=== PATIENT | female | born 1960 | race Hispanic/Latino ===

== ENCOUNTER 2022-04-18 06:25 | Day surgery (SDC) | payer OTHER ==
[2022-04-18] MEDS ORDERED: SODIUM CHLORIDE 0.9% 500 ML 500 ML IV SCH (07:00)
[2022-04-18 07:32] LABS: Basophils # (Auto) 0.1 K/mm3 (0.0-0.1); Basophils % (Auto) 0.7 % (0.0-1.8); Eosinophils # (Auto) 0.1 K/mm3 (0.0-0.4); Hematocrit 35.8 % (30.3-42.9); Hemoglobin 12.2 gm/dl (10.1-14.3); Lymphocytes % (Auto) 33.4 % (13.4-35.0); Mean Corpuscular HGB Conc 34 % (30-34); Mean Corpuscular Volume 86 fl (79-97); Monocytes # (Auto) 0.8 K/mm3 (0.0-0.8); Monocytes % (Auto) 9.1 % (0.0-7.3); Platelet Count 281 K/mm3 (140-440); Red Blood Count 4.19 M/mm3 (3.65-5.03); Red Cell Distribution Width 13.1 % (13.2-15.2)
[2022-04-18 07:38] LABS: INR 0.93 (0.87-1.13)
[2022-04-18 07:39] LABS: Partial Thromboplastin Time 31.5 Sec. (24.2-36.6)
[2022-04-18 07:50] LABS: BUN/Creatinine Ratio 36; Blood Urea Nitrogen 32 mg/dL (7-17); Calcium 9.4 mg/dL (8.4-10.2); Hemolysis Index 13
[2022-04-18] MEDS ORDERED: HEPARIN/NS 5000 UNIT/500ML 500 ML IR ONE (08:47)
[2022-04-18] MEDS ORDERED: HEPARIN 10,000 UNITS/10 ML VIAL ONE (08:47)
[2022-04-18] MEDS ORDERED: LIDOCAINE (1%) 10 MG/1 ML VIAL 20 ML MDV ONE ×2 (08:47→08:53)
[2022-04-18] MEDS ORDERED: MIDAZOLAM 2 MG/2 ML INJ ONE (08:48)
[2022-04-18] MEDS ORDERED: NITROGLYCERIN SYRINGE 3 ML ONE (08:48)
[2022-04-18] MEDS ORDERED: VERAPAMIL 5 MG/2 ML INJ ONE (08:48)
[2022-04-18] MEDS ORDERED: fentaNYL 100 MCG/2 ML INJ ONE (08:49)
[2022-04-18] MEDS ORDERED: LIDOCAINE (2%) 20 MG/1 ML VIAL 50 ML MDV INFILTRATI ONE (09:05)
--- NOTE | 2022-04-18 10:01 | Cardiac Catherization Report ---
DATE OF PROCEDURE: 04/18/2022 CARDIAC CATHETERIZATION REFERRING PHYSICIAN: Bowen Mijares MD INDICATIONS FOR PROCEDURE: The patient is an exceedingly pleasant 61-year-old female with unstable angina and abnormal nuclear stress test, referred for left heart catheterization. Risks, benefits, and alternatives explained at length prior to obtaining informed consent. PROCEDURE IN DETAIL: The patient was brought to laborer concrete paving in a postabsorptive state, prepped and draped in sterile fashion. Issa test in right hand is abnormal. No radial pulse. Unable to obtain radial access. We used a groin access. A 6-Khmer sheath placed in the right common femoral artery via modified Seldinger technique. All exchanges performed to exchange a J-tip guidewire. JL3.5 catheter used to engage the left main. No dampening or ventricularization. Cineangiography performed in all projections. JR4 catheter used to cross the aortic valve under fluoroscopic guidance. Left ventriculography performed in 30-degree ROSSI and 30-degree BAHAMIAN projections via hand injections, catheter flushed. Manual pullback performed with continuous pressure monitoring. Catheter used to engage the right coronary. No dampening or ventricularization. Cineangiography performed in all projections. Next, due to unremarkable coronaries and recurrent chest pain, we performed root aortography with a pigtail catheter in the BAHAMIAN projection with a power injector. Next, catheter removed from the body of the wire, sheath removed. Manual pressure used to achieve hemostasis. DATA: Aortic pressure is 140/80, LV pressure is 140, LVEDP of 15 mmHg. Left ventriculography reveals normal left ventricular systolic performance, estimated ejection fraction 55-60%. No evidence of aortic stenosis. CORONARY ANATOMY: This is a right dominant system. Right coronary is a moderate sized vessel, courses AV groove, distally bifurcates in the posterior descending and posterolateral branches. No discrete stenoses noted. Left main without significant disease, bifurcates into left anterior descending, left circumflex. Left circumflex is a moderate sized vessel, courses AV groove. No significant disease in left circumflex. There is a patent stent in the mid left circumflex. LAD is a moderate-sized vessel, courses anterior interventricular groove , wraps around the apex. Scattered luminal irregularities, but no significant disease. Normal tapering in the distal LAD. The first diagonal with a patent stent. MAX 3 flow throughout the coronary tree. Root aortography reveals normal contour, normal caliber. No evidence of dissection, penetrating aortic ulcer or aortic insufficiency. Normal great vessel anatomy. I directly supervised the administration of moderate sedation with fentanyl and Versed from 8:50 a.m. to 9:26 a.m. No immediate complications. CONCLUSIONS: 1. No angiographic evidence of significant obstructive epicardial coronary artery disease in this right dominant system. A. Patent first diagonal stent. B. Patent mid left circumflex stent. 2. Normal left ventricular systolic performance, estimated ejection fraction 55-60% without evidence of aortic stenosis. 3. Normal LVEDP. 4. Root aortography is normal without evidence of aortic dissection, penetrating aortic ulcer or aortic insufficiency. The patient is clinically stable, chest pain free. Etiology of her chest pain is unclear. May certainly be microvascular angina. We will add Ranexa. We will check V/Q scan to exclude venous thromboembolic disease, although her O2 sats are now 97% on room air. Standard groin care. Results of procedure explained to the patient and family. All questions were addressed. If her chest pain does not have a cardiac or pulmonary etiology, certainly we will consider GI evaluation. TID: [id number] RECEIPT: [id number] FLORA/ANNA
--- NOTE | 2022-04-18 10:48 | Electrocardiograph Report ---
[facility] Test Date: 2022-04-18 Test Time: 07:51:33 Pat Name: DOROTHY TAYLOR Department: Room: Gender: F Manager Clinical Services: MARTINA : 1960 Requested By: PATRICK REDDING Order Number: [id number] Reading MD: Breanne Deleon Measurements Intervals [place] Rate: 59 P: 50 MS: 155 QRS: 9 QRSD: 105 T: 23 QT: 445 QTc: 441 Interpretive Statements Sinus bradycardia Lateral infarct, age indeterminate No previous ECG available for comparison Electronically Signed On 04-18-2022 10:48:22 EDT by Breanne Deleon
[2022-04-18] MEDS ORDERED: traMADol 50 MG TAB PO PRN (11:00)
[2022-04-18] MEDS ORDERED: HYDROcodone/ACETAMINOPHEN 5-325 MG TAB PO PRN (11:00)
--- NOTE | 2022-04-18 12:09 | Nuclear Medicine Report ---
NUCLEAR MEDICINE PERFUSION SCAN INDICATION: SOB CORRELATION: AP chest performed the same day RADIOPHARMACEUTICAL: Perfusion: 5.0 mCi Tc-99m MAA given IV FINDINGS: Perfusion images show symmetric and uniform radiotracer distribution throughout bilateral lung zones with no evidence of unmatched segmental perfusion defects. Normal cardiac silhouette. IMPRESSION: No evidence for pulmonary embolus. Signer Name: Collin Villalobos Jr, MD Signed: 04/18/2022 12:04 PM Workstation Name: [id number]
--- NOTE | 2022-04-18 12:31 | XRay Report ---
CHEST 1 VIEW 04/18/2022 10:16 AM INDICATION / CLINICAL INFORMATION: SOB. COMPARISON: None available. FINDINGS: SUPPORT DEVICES: None. HEART / MEDIASTINUM: No significant abnormality. LUNGS / PLEURA: There is focal parenchymal opacity in the medial right lung base. The remainder the l ungs appear clear. No pneumothorax. ADDITIONAL FINDINGS: No significant additional findings. IMPRESSION: 1. There is focal parenchymal opacity in the medial right lung base. PA and lateral chest radiograph is recommended to better evaluate. Signer Name: Ludin Littlejohn MD Signed: 04/18/2022 12:26 PM Workstation Name: [id number]
--- NOTE | 2022-04-18 15:21 | Short Stay Summary ---
Short Stay Documentation Date of service: 04/18/22 - History H&P: obtained from office - Allergies and Medications Current Medications: Allergies No Known Allergies Allergy (Verified 04/18/22 06:50) Home Medications Medication Instructions Recorded Confirmed Last Taken Type Aspirin EC [Halfprin EC] 81 mg PO QDAY 04/18/22 04/18/22 04/18/22 History 81 mg Evolocumab [Repatha Sureclick] 140 mg SUB-Q Q2W 04/18/22 04/18/22 04/16/22 History 140 mg Ibuprofen [Motrin] 800 mg PO Q8HR PRN 04/18/22 04/18/22 Unknown History Lisinopril/Hydrochlorothiazide 1 each PO DAILY 04/18/22 04/18/22 04/17/22 History [Zestoretic 10-12.5 mg Tablet] 1 tab Metoprolol [Lopressor] 25 mg PO DAILY 04/18/22 04/18/22 04/17/22 History 25 mg Nitroglycerin [Nitrostat] 0.4 mg SL Q5M PRN 04/18/22 04/18/22 Unknown History Prasugrel [Effient] 1 tab PO DAILY 04/18/22 04/18/22 04/18/22 History 1 tab Ranolazine ER [Ranexa ER] 500 mg PO BID 30 Days #60 04/18/22 Unknown Rx tab.er.12h Semaglutide [Ozempic] 1 ml SQ 1XW 04/18/22 04/18/22 04/12/22 History 1.0 Sertraline [Zoloft] 50 mg PO QDAY 04/18/22 04/18/22 04/17/22 History 50 mg Active Medications Sodium Chloride (Nacl 0.9% 500 Ml) 500 mls @ 50 mls/hr IV DIRECT TANK Stop: 04/18/22 16:59 Last Admin: 04/18/22 08:33 Dose: 50 mls/hr Tramadol HCl (Tramadol 50 Mg Tab) 50 mg PO Q4H PRN PRN Reason: Pain, Mild (1-3) Last Admin: 04/18/22 14:01 Dose: 50 mg - Physical exam Integumentary: other (Dressing clean dry and intact with no hematoma) - Brief post op/procedure progress note Date of procedure: 04/18/22 Pre-op diagnosis: Coronary artery disease Post-op diagnosis: same Anesthesia: local Estimated blood loss: minimal - Hospital course Hospital course: Patient presents today for cardiac cath due to abnormal stress test and unstable angina. Patient found to have nonobstructive coronary artery disease. VQ scan was ordered to rule out PE. V/Q negative for PE. Patient to be discharged home with prescription for Ranexa 500 mg p.o. twice daily. Patient could have a 24-hour Holter monitor. Patient to follow-up in the office as an outpatient. - Disposition Condition at discharge: Good Disposition: 01 HOME / SELF CARE / HOMELESS - Discharge Diagnoses (1) Coronary artery disease Status: Acute (2) Hypertension Status: Acute (3) Diabetes Status: Acute Short Stay Discharge Plan Activity: advance as tolerated Diet: low fat, low cholesterol, low salt Wound: keep clean and dry, per your surgeon's advice Follow up with: WHIT NÚÑEZ MD [Primary Care Provider] - 7 Days PATRICK REDDING MD [Staff Physician] - 7 Days (Patient follow-up with Dr. Redding on 05/03/2022 at 2:45 PM at our [place] location. Phone #[phone] Patient has been scheduled for 24-hour Holter monitor on 04/26/2022 at 10:45 AM at our [place] location) Prescriptions: Ranolazine ER [Ranexa ER] 500 mg PO BID 30 Days #60 tab.er.12h
[2022-04-18 15:30] VITALS: BP 123/77
== END 2022-04-18 16:00 | disposition home or self-care (01) ==
LOC: CATHLABREC 06:25
PROVIDERS: ATTEND Internal Medicine
DX: I25.110 Atherosclerotic heart disease of native coronary artery with unstable angina pectoris (principal); R94.39 Abnormal result of other cardiovascular function study; E11.9 Type 2 diabetes mellitus without complications; I10 Essential (primary) hypertension; E78.00 Pure hypercholesterolemia, unspecified; M19.90 Unspecified osteoarthritis, unspecified site; F41.9 Anxiety disorder, unspecified; Z90.49 Acquired absence of other specified parts of digestive tract; Z87.442 Personal history of urinary calculi; Z79.899 Other long term (current) drug therapy; Z79.82 Long term (current) use of aspirin; Z95.5 Presence of coronary angioplasty implant and graft; Z98.890 Other specified postprocedural states
CPT/HCPCS: 36415; 71045; 78580; 80048; 85025; 85610; 85730; 93005; 93458; 93567; 99156; 99157; A9540; C1894; J1644; J1815; J2250; J3010; J3490; J7040; Q9967